=== PATIENT | female | born 1965 | race African-American/Black ===

== ENCOUNTER → 2023-04-27 | Emergency (ER) | payer BC ==
--- NOTE | 2023-04-27 17:04 | RAD REPORT ---
EXAM DESCRIPTION: Samirt Single View04/27/2023 4:42 pm CLINICAL HISTORY: CHEST PAIN COMPARISON: Chest Single View dated 08/17/2016; CHEST PA AND LAT 2 VIEW dated 03/17/2012; CHEST SINGL E VIEW dated 06/02/2008 TECHNIQUE: Portable AP view of the chest. FINDINGS: The lungs are clear. No pneumothorax or effusion. The cardiomediastinal contours are unre markable. IMPRESSION: No acute cardiopulmonary process.
[2023-04-27 17:09] LABS: SARS-CoV-2 Antigen Rapid Res Negative (Negative)
[2023-04-27 17:11] LABS: Absolute Lymphocytes (CBC) 1.4 K/uL (0.7-4.9); Hematocrit 37.2 % (36.0-45.0); Lymphocytes % 44.6 % (15.3-44.8); MCV 96.4 fL (80-100); MPV 7.7 fL (7.6-11.3); Platelets 252 thou/uL (152-406); RBC Red Blood Cell Count 3.86 M/uL (3.86-4.86)
[2023-04-27 17:36] LABS: ALT/SGPT 36 U/L (13-56); AST/SGOT 21 U/L (15-37); Albumin 3.4 g/dL (3.4-5.0); Alkaline Phosphatase 87 U/L (45-117); BUN Blood Urea Nitrogen 10 mg/dL (7-18); Bicarbonate 29 mEq/L (21-32); Bilirubin Total 0.3 mg/dL (0.2-1.0); Glomerular Filtration Rate 46 ml/min (=/>90); Glucose Level 91 mg/dL (74-106); Lipase 33 U/L (13-75); Magnesium 2.2 mg/dL (1.6-2.4); Potassium 3.9 mEq/L (3.5-5.1); Protein, Total 7.6 g/dL (6.4-8.2); Sodium Level 140 mEq/L (136-145); Troponin High Sensitivity 15.8 pg/mL (<58.9)
[2023-04-27 17:45] LABS: Bilirubin Direct < 0.1 mg/dL (0-0.2); Bilirubin Indirect, Calculated ND mg/dL (0.2-0.8)
--- NOTE | 2023-04-27 17:58 | ER ---
Nurse's Notes [facility] Name: Shari Velarde Age: 57 yrs Sex: Female : 1965 Arrival Date: 04/27/2023 Time: 15:34 Bed 8 Private MD: Diagnosis: Pain in left shoulder Presentation: 04/27 16:03 Chief complaint: Patient states: Woke up this morning with left upper back pain. Denies ld1 injury. N/V, cough. Coronavirus screen: At this time, the client does not indicate any symptoms associated with coronavirus-19. Ebola Screen: No symptoms or risks identified at this time. Risk Assessment: Do you want to hurt yourself or someone else? Patient reports no desire to harm self or others. Onset of symptoms was April 27, 2023. 16:03 Method Of Arrival: Ambulatory ld1 16:03 Acuity: CANDACE 4 ld1 16:05 Chief complaint:. Initial Sepsis Screen: Does the patient meet any 2 criteria? No. ld1 Patient's initial sepsis screen is negative. Does the patient have a suspected source of infection? No. Patient's initial sepsis screen is negative. Triage Assessment: 16:03 General: Appears in no apparent distress. comfortable, Behavior is calm, cooperative, ld1 appropriate for age. Pain: Complains of pain in left scapular area and left subscapular area Pain does not radiate. Pain currently is 8 out of 10 on a pain scale. Quality of pain is described as throbbing, Pain began 4 hours ago. EENT: No signs and/or symptoms were reported regarding the EENT system. Neuro: Level of Consciousness is awake, alert, obeys commands, Oriented to person, place, time, situation. Cardiovascular: Capillary refill < 3 seconds Patient's skin is warm and dry. Respiratory: Airway is patent Respiratory effort is even, unlabored. GI: Abdomen is round non-distended. : No signs and/or symptoms were reported regarding the genitourinary system. Derm: No signs and/or symptoms reported regarding the dermatologic system. Musculoskeletal: No signs and/or symptoms reported regarding the musculoskeletal system. Historical: - Allergies: 16:06 No Known Allergies; ld1 - PMHx: 16:06 Asthma; ld1 - PSHx: 16:06 None; ld1 - Immunization history:: Adult Immunizations up to date. - Social history:: Smoking status: Patient denies any tobacco usage or history of. Patient/guardian denies using alcohol. Screenin:30 [facility] ED Fall Risk Assessment (Adult) Score/Fall Risk Level 0 - 2 = Low Risk [facility] Oriented to surroundings, Maintained a safe environment, Hourly rounding (assess needs \T\ fall precautionary measures) done. 18:30 Abuse screen: Denies threats or abuse. Denies injuries from another. Nutritional nj1 screening: No deficits noted. Tuberculosis screening: No symptoms or risk factors identified. Vital Signs: 16:04 BP 127 / 85; Pulse 63; Resp 18; Temp 98.7(TE); Pulse Ox 98% on R/A; Weight 81.19 kg; ld1 Height 5 ft. 5 in. ; Pain 8/10; 18:34 BP 122 / 69; Pulse 63; Resp 18; Pulse Ox 98% on R/A; Pain 4/10; nj1 16:04 Body Mass Index 29.79 (81.19 kg, 165.1 cm) ld1 16:04 Pain Scale: Adult ld1 18:34 Pain Scale: Adult [facility] ED Course: 15:35 Patient arrived in ED. rg4 15:36 Bhakti Weinstein PA-C is PHCP. sb4 15:36 Tray Esparza MD is Attending Physician. sb4 16:03 Arm band placed on right wrist. ld1 16:04 Triage completed. ld1 16:43 XRAY Chest (1 view) In Process Unspecified. EDMS 16:55 Initial lab(s) drawn, by nm, sent to lab. Inserted saline lock: 20 gauge in left ap3 antecubital area, using aseptic technique. Blood collected. 16:56 Lipase Sent. ap3 16:56 Flu Sent. ap3 16:56 SARS RAPID Sent. ap3 16:56 CBC with Diff Sent. ap3 16:56 LFT's Sent. ap3 16:56 Magnesium Sent. ap3 16:56 Troponin HS Sent. ap3 18:00 Ananya Luciano, DHARMESH is Primary Nurse. nj1 18:30 Patient has correct armband on for positive identification. Bed in low position. Call [facility] light in reach. Adult w/ patient. 18:30 No provider procedures requiring assistance completed. nj1 18:30 IV discontinued, intact, bleeding controlled. nj1 18:34 Provided Education on: discharge instructions. nj1 Administered Medications: No medications were administered Medication: 18:34 VIS not applicable for this client. nj1 Outcome: 17:57 Discharge ordered by . sb4 18:34 Discharged to home ambulatory, with family, nj1 18:34 Condition: stable nj1 18:34 Discharge instructions given to patient, Instructed on discharge instructions, follow up and referral plans. medication usage, Demonstrated understanding of instructions, follow-up care, medications, Prescriptions given X 1, 19:05 Patient left the ED. iw Signatures: Dispatcher [employer] EDMS Nidhi Lobato RN RN iw Claudia Sykes4 Lindsay Garcia RN RN laurence3 Kaleigh Horan RN RN ld1 Bhakti Weinstein, PA-C PA-Sammi stoner4 Ananya Luciano RN RN nj1 Corrections: (The following items were deleted from the chart) 16:06 16:03 Chief complaint: Patient states: Woke up this morning with left upper back pain. ld1 Denies injury ld1
--- NOTE | 2023-04-27 17:58 | EDPHYS ---
Physician Documentation [facility] Name: Shari Velarde Age: 57 yrs Sex: Female : 1965 Arrival Date: 04/27/2023 Time: 15:34 Bed 8 Private MD: ED Physician Tray Esparza HPI: 04/27 16:14 This 57 yrs old Black Female presents to ER via Ambulatory with complaints of chest sb4 pain, shoulder pain, cough. 16:14 The patient or guardian reports chest pain that is located primarily in the anterior sb4 chest wall, left. Onset: this morning. The pain does not radiate. Associated signs and symptoms: Pertinent positives: cough. The chest pain is described as a pressure. Modifying factors: The symptoms are alleviated by nothing. the symptoms are aggravated by cough. Patient states she woke up this morning with left-sided shoulder pain and left-sided chest pain. She states that she has had a cough for a few weeks now but worsened a few days ago. She went to some urgent care earlier in which nothing was done per her. She called Tameka Lim who directed her to come here for further evaluation. She denies any fever, shortness of breath, does endorse some URI symptoms. Historical: - Allergies: 16:06 No Known Allergies; ld1 - PMHx: 16:06 Asthma; ld1 - PSHx: 16:06 None; ld1 - Immunization history:: Adult Immunizations up to date. - Social history:: Smoking status: Patient denies any tobacco usage or history of. Patient/guardian denies using alcohol. ROS: 16:14 Constitutional: Negative for fever, chills, and weight loss, sb4 16:14 ENT: Positive for nasal discharge, 16:14 Cardiovascular: Positive for chest pain, 16:14 Respiratory: Positive for cough, 16:14 Abdomen/GI: Positive for nausea and vomiting, 16:14 MS/extremity: Positive for pain, of the left scapular area, 16:14 All other systems are negative, Exam: 16:14 Constitutional: This is a well developed, well nourished patient who is awake, alert, sb4 and in no acute distress. Head/Face: Normocephalic, atraumatic. Eyes: Extra-ocular motions intact. Periorbital areas with no swelling, redness, or edema. ENT: Mucous membranes moist. Cardiovascular: Regular rate and rhythm with a normal S1 and S2. Respiratory: Lungs have equal breath sounds bilaterally, clear to auscultation and percussion. No rales, rhonchi or wheezes noted. No increased work of breathing, no retractions or nasal flaring. Abdomen/GI: Soft, non-tender, no distension. Skin: Warm, dry with normal turgor. Normal color with no rashes, no lesions, and no evidence of cellulitis. MS/ Extremity: Pulses equal, no cyanosis. Neurovascular intact. Full, normal range of motion. Neuro: Awake and alert, GCS 15, oriented to person, place, time, and situation. Motor strength 5/5 in all extremities. Sensory grossly intact. Vital Signs: 16:04 BP 127 / 85; Pulse 63; Resp 18; Temp 98.7(TE); Pulse Ox 98% on R/A; Weight 81.19 kg; ld1 Height 5 ft. 5 in. ; Pain 8/10; 18:34 BP 122 / 69; Pulse 63; Resp 18; Pulse Ox 98% on R/A; Pain 4/10; nj1 16:04 Body Mass Index 29.79 (81.19 kg, 165.1 cm) ld1 16:04 Pain Scale: Adult ld1 18:34 Pain Scale: Adult nj1 MDM: 15:39 Patient medically screened. sb4 16:14 Differential diagnosis: chest wall pain, pleurisy, pneumonia, bronchitis, pancreatitis, sb4 muscle strain. 17:56 Data reviewed: vital signs, nurses notes, lab test result(s), EKG, radiologic studies, sb4 and as a result, I will discharge patient. Scoring Tools HEART Score: History: ECG: Age: Risk Factors: 1 or 2 risk factors (1), Troponin: Total Score = 2. Counseling: I had a detailed discussion with the patient and/or guardian regarding the historical points, exam findings, and any diagnostic results supporting the discharge/admit diagnosis, lab results, radiology results, the need for outpatient follow up, for definitive care, to return to the emergency department if symptoms worsen or persist or if there are any questions or concerns that arise at home. 04/27 16:11 Order name: Basic Metabolic Panel; Complete Time: 17:47 sb4 04/27 16:11 Order name: CBC with Diff; Complete Time: 17:14 sb4 04/27 16:11 Order name: LFT's; Complete Time: 17:47 sb4 04/27 16:11 Order name: Magnesium; Complete Time: 17:47 sb4 04/27 16:11 Order name: Troponin HS; Complete Time: 17:47 sb4 04/27 16:11 Order name: SARS RAPID; Complete Time: 17:11 sb4 04/27 16:11 Order name: Flu; Complete Time: 17:42 sb4 04/27 16:11 Order name: Lipase; Complete Time: 17:47 sb4 04/27 16:11 Order name: XRAY Chest (1 view); Complete Time: 17:11 sb4 04/27 16:11 Order name: EKG; Complete Time: 16:11 sb4 04/27 16:11 Order name: EKG - Nurse/Tech; Complete Time: 18:48 sb4 04/27 16:11 Order name: IV Saline Lock; Complete Time: 16:55 sb4 04/27 16:11 Order name: Labs collected and sent; Complete Time: 16:56 sb4 EC:36 Rate is 61 beats/min. Rhythm is regular, Normal Sinus Rhythm. QRS [place] is Normal. [place] sb4 interval is normal at 136 msec. QRS interval is normal at 86 msec. QT interval is normal at 426 msec. No Q waves. T waves are Normal. No ST changes noted. Clinical impression: Normal ECG. Interpreted by me. Reviewed by me. Administered Medications: No medications were administered Disposition Summary: 04/27/23 17:57 Discharge Ordered Notes: Location: Home sb4 Problem: new sb4 Symptoms: have improved sb4 Condition: Stable sb4 Diagnosis - Pain in left shoulder sb4 Followup: sb4 - With: Emergency Department - When: As needed - Reason: Trouble breathing, Worsening of condition Discharge Instructions: - Discharge Summary Sheet sb4 - Shoulder Pain sb4 Forms: - Medication Reconciliation Form sb4 - Thank You Letter sb4 - Antibiotic Education sb4 - Prescription Opioid Use sb4 - Patient Portal Instructions sb4 - Leadership Thank You Letter sb4 Prescriptions: - methocarbamol 500 mg Oral tablet - take 2 tablets ORAL route 4 times per day; 20 tablet; Refills: 0, Product sb4 Selection Permitted Addendum: 04/28/2023 19:13 I was immediately available for consultation during this patient's visit. I did not e c2 personally see the patient or discuss the patient with the JESSICA. . Signatures: Dispatcher [employer] Kaleigh Alicea RN RN ld1 Bhakti Weinstein, SHANELL REECE sb4 Tray Esparza MD MD ec2 Corrections: (The following items were deleted from the chart) 04/27 18:01 16:11 Cardiac monitoring ordered. 4 nj1 18: 16:11 Oxygen Per Protocol ordered. sb4 nj1 18:01 16:11 O2 Sat Monitoring ordered. sb4 nj1
[2023-04-27 23:00] VITALS: BP 127/85; TEMP 98.7; O2SAT 98
--- NOTE | 2023-04-28 17:50 | EKG ---
Test Date: 2023-04-27 Test Time: 18:23:56 Plaster Die Maker: MARCOS MEASUREMENT RESULTS: Intervals: Rate: 61 HI: 136 QRSD: 86 QT: 426 QTc: 428 [place]: P: 58 HI: 136 QRS: 57 T: 68 INTERPRETIVE STATEMENTS: Normal sinus rhythm Normal ECG Compared to ECG 08/16/2016 21:53:06 Atrial abnormality no longer present Electronically Signed On 04-28-23 17:48:39 TESTING MACHINE OPERATOR by Gurwinder Carrillo
== END ==
LOC: ER 15:34
DX: M25.512 Pain in left shoulder (principal); R07.89 Other chest pain; R11.2 Nausea with vomiting, unspecified; R05.9 Cough, unspecified; Z11.52 Encounter for screening for COVID-19
CPT/HCPCS: 36415; 71045; 80048; 80076; 83690; 83735; 84484; 85025; 87804; 87811; 93005; 99283